=== PATIENT | female | born 1995 | race Caucasian/White ===

== ENCOUNTER 2023-03-08 14:36 | Inpatient (IN) | payer MEDICAID ==
[2023-03-08] MEDS: Morphine 2 MG/ML SYRINGE IVPUSH ONE ×2 (15:15→21:59)
[2023-03-08] MEDS: Acetaminophen 500 MG Tab PO ONE (15:15)
[2023-03-08] MEDS: Acetaminophen 500 MG Tab ONE (15:18)
[2023-03-08] MEDS: Sodium Chloride 0.9% 10 ML Syringe FLUSH PRN (15:19)
[2023-03-08] MEDS: Morphine 2 MG/ML SYRINGE ONE (15:19)
[2023-03-08 15:35] LABS: BASE EXCESS ARTERIAL -1.3 mm/L; BICARBONATE,ARTERIAL 19.5 mmol/L (22.0-26.0); CARBOXYHEMOGLOBIN 3.1 % (0.0-1.6); METHEMOGLOBIN 0.8 %; O2 SATURATION ARTERIAL 95.6 % (95.0-98.0); OXYHEMOGLOBIN 91.9 %; PCO2 ARTERIAL 24.5 mmHg (35.0-42.0); PO2 ARTERIAL 70.2 mmHg (75.0-100.0); TOTAL HEMOGLOBIN 15.8 g/dL (12.0-16.0)
[2023-03-08 15:40] LABS: BASOPHILS PERCENT AUTO 0.1 % (0.1-1.3); EOSINOPHILS ABSOLUTE AUTO 0.04 K/uL (0.00-0.40); EOSINOPHILS PERCENT AUTO 0.3 % (0.0-5.4); HEMATOCRIT 46.6 % (34.3-46.0); HEMOGLOBIN 15.7 g/dL (11.2-15.5); IMMATURE GRAN ABSOLUTE AUTO 0.05 K/uL (0.00-0.23); IMMATURE GRAN PERCENT AUTO 0.3 % (0.0-0.7); LYMPHOCYTES ABSOLUTE AUTO 1.56 K/uL (0.8-3.3); MEAN CORPUSCULAR HEMOGLOBIN 28.5 pg (31.6-35.5); MEAN CORPUSCULAR HGB CONC 33.7 g/dL (31.6-35.5); MEAN CORPUSCULAR VOLUME 84.7 fL (81.4-99.0); MONOCYTES ABSOLUTE AUTO 0.85 K/uL (0.20-0.90); MONOCYTES PERCENT AUTO 5.4 % (3.3-12.6); NEUTROPHILS ABSOLUTE AUTO 13.09 K/uL (1.0-7.6); NEUTROPHILS PERCENT AUTO 83.9 % (40.0-78.1); PLATELET COUNT,PLT 233 K/uL (130-375); WHITE BLOOD CELL COUNT,WBC 15.6 K/uL (3.2-11.0)
[2023-03-08 15:48] LABS: BASOPHILS ABSOLUTE AUTO 0.02 K/uL (0.00-0.10)
[2023-03-08 16:02] LABS: INR 1.2; PROTHROMBIN TIME 11.6 sec (9.2-10.6); PTT,PARTIAL THROMBOPLSTIN TIME 26.6 sec (21.8-27.3)
[2023-03-08 16:22] LABS: BLOOD UREA NITROGEN,BUN 13 mg/dL (7-18); CALCIUM 8.8 mg/dL (8.5-10.1); CARBON DIOXIDE,CO2 22 mmol/L (21-32); CHLORIDE,CL 98 mmol/L (100-108); CREATININE 0.7 mg/dL (0.6-1.0); EST CRCL DRUG DOSING (CG) 85.68 mL/min; ESTIMATED GFR 121 mL/min (>60); GLUCOSE RANDOM 112 mg/dL (74-106); MAGNESIUM 1.7 mg/dL (1.8-2.4); PHOSPHORUS 2.2 mg/dL (2.5-4.9); POTASSIUM,K 3.1 mmol/L (3.6-5.2); PRO B-TYPE NATRIUR PEPT,BNPPRO 31 pg/mL (5-125); SODIUM,NA 135 mmol/L (140-148)
[2023-03-08 16:23] LABS: ANION GAP 18.1 mmol/L (5.0-14.0); TROPONIN I HIGH SENSITIVITY < 4.0 pg/mL (<=60.3)
[2023-03-08] MEDS: Sodium Chloride 0.9% 1,000 ML IV ONE (17:16)
[2023-03-08] MEDS: cefTRIAXone 1 GM in Sodium Chloride 0.9% 50 ML IV ONE (17:18)
[2023-03-08 17:36] LABS: CORONAVIRUS COVID-19 NAA NEGATIVE (NEGATIVE); INFLUENZA A NAA NEGATIVE (NEGATIVE); INFLUENZA B NAA NEGATIVE (NEGATIVE); RESPIRATORY SYNCYTIAL VIR NAA NEGATIVE (NEGATIVE)
[2023-03-08] MEDS ORDERED: Sodium Chloride 0.9% 10 ML Syringe FLUSH PRN (17:50)
[2023-03-08] MEDS: Sodium Chloride 0.9% 100 ML IV SCH (18:03)
[2023-03-08] MEDS: Iopamidol 755 Mg/ML 100 ML Bottle IV SCH (18:03)
[2023-03-08] MEDS: Azithromycin 500 MG in Sodium Chloride 0.9% 250 ML IV ONE (18:25)
[2023-03-08 19:14] LABS: APPEARANCE,URINE SLIGHTLY CLOUDY (CLEAR); BILIRUBIN,URINE NEGATIVE (NEGATIVE); COLOR,URINE YELLOW (YELLOW); GLUCOSE,URINE NEGATIVE (NEGATIVE); KETONES,URINE 40 mg/dL (NEGATIVE); LEUKOCYTE ESTERASE,URINE NEGATIVE (NEGATIVE); NITRITE,URINE NEGATIVE (NEGATIVE); OCCULT BLOOD,URINE NEGATIVE (NEGATIVE); PROTEIN,URINE 30 mg/dL (NEGATIVE); UROBILINOGEN,URINE 0.2 EU/dL (0.2-1.0)
[2023-03-08 19:18] LABS: AMPHETAMINES SCREEN, URINE NEGATIVE (NEGATIVE); METHAMPHETAMINES SCREEN, URINE NEGATIVE (NEGATIVE)
[2023-03-08 19:19] LABS: BARBITURATE SCREEN,URINE NEGATIVE (NEGATIVE); BENZODIAZEPINES SCREEN,URINE NEGATIVE (NEGATIVE); METHADONE SCREEN, URINE NEGATIVE (NEGATIVE); OXYCODONE SCREEN,URINE NEGATIVE (NEGATIVE); PROPOXYPHENE SCREEN,URINE NEGATIVE (NEGATIVE); THC SCREEN,URINE 50 NG/ML PRESUMPTIVE POSITIVE (NEGATIVE)
[2023-03-08 19:20] LABS: AMORPHOUS SEDIMENT,URINE NOT SEEN; BACTERIA,URINE FEW; EPITHELIAL CELLS,URINE FEW; MUCUS,URINE RARE; RBC,URINE 0-5 (0-5); WBC,URINE 0-5 (0-5)
[2023-03-08] MEDS ORDERED: Sennosides/Docusate Sodium 50-8.6 MG Tab PO PRN (19:24)
[2023-03-08] MEDS ORDERED: Ondansetron 4 MG/2 ML SDV IV PRN (19:24)
[2023-03-08] MEDS ORDERED: LORazepam 2 MG/ML SDV IVPUSH PRN (19:24)
[2023-03-08] MEDS ORDERED: Acetaminophen 325 MG Tab PO PRN (19:24)
[2023-03-08] MEDS ORDERED: Magnesium Hydroxide 400 MG/5 ML Susp 30 ML Cup PO PRN (19:24)
[2023-03-08] MEDS: Sodium Chloride 0.9% 1,000 ML IV SCH (19:45)
[2023-03-08] MEDS: Nicotine 14 MG/24 Hr Patch TRDERM SCH (20:25)
[2023-03-08] MEDS: Magnesium Sulfate/Water 2 GM in Premix Bag 1 BAG IV ONE (20:56)
[2023-03-08] MEDS: guaiFENesin 600 MG Tab.ER PO SCH (20:58)
[2023-03-08] MEDS: Potassium Chloride 20 MEQ Tab.ER PO SCH (20:58)
[2023-03-09] MEDS: oxyCODONE 5 MG Tab PO PRN (04:54)
[2023-03-09 05:42] LABS: HEMATOCRIT 38.5 % (34.3-46.0); HEMOGLOBIN 12.7 g/dL (11.2-15.5); MEAN CORPUSCULAR HEMOGLOBIN 28.7 pg (31.6-35.5); MEAN CORPUSCULAR VOLUME 86.9 fL (81.4-99.0); RED BLOOD CELL COUNT 4.43 M/uL (3.77-5.24)
[2023-03-09 06:18] LABS: ALANINE AMINOTRANSFERASE,ALT 33 U/L (12-78); ALBUMIN 2.8 g/dL (3.4-5.0); ALKALINE PHOSPHATASE 60 U/L (46-116); ASPARTATE AMNIOTRANSFERASE,AST 33 U/L (15-37); BILIRUBIN TOTAL 0.5 mg/dL (0.2-1.0); BLOOD UREA NITROGEN,BUN 10 mg/dL (7-18); C-REACTIVE PROTEIN 9.59 mg/dL (<0.50); CALCIUM 7.5 mg/dL (8.5-10.1); CARBON DIOXIDE,CO2 23 mmol/L (21-32); CHLORIDE,CL 104 mmol/L (100-108); CREATININE 0.5 mg/dL (0.6-1.0); EST CRCL DRUG DOSING (CG) 112.51 mL/min; ESTIMATED GFR 131 mL/min (>60); GLUCOSE RANDOM 84 mg/dL (74-106); MAGNESIUM 2.2 mg/dL (1.8-2.4); POTASSIUM,K 3.9 mmol/L (3.6-5.2); PROTEIN TOTAL,TP 6.1 g/dL (6.4-8.2); SODIUM,NA 138 mmol/L (140-148)
[2023-03-09 06:20] LABS: A/G RATIO 0.9 (1.2-2.2); ANION GAP 14.9 mmol/L (5.0-14.0)
[2023-03-09] MEDS: methylPREDNISolone Sodium Succinate 40 MG/1 ML SDV IVPUSH SCH (08:08)
[2023-03-09] MEDS: Albuterol 0.083% 2.5 MG/3 ML Neb Soln NEB PRN (08:40)
[2023-03-09] MEDS: cefTRIAXone 2 GM in Sodium Chloride 0.9% 50 ML IV SCH (09:41)
[2023-03-09] MEDS: Azithromycin 500 MG in Sodium Chloride 0.9% 250 ML IV SCH (10:57)
[2023-03-09] MEDS: Ibuprofen 600 MG Tab PO PRN (15:18)
[2023-03-10 06:02] LABS: HEMATOCRIT 38.1 % (34.3-46.0); HEMOGLOBIN 12.5 g/dL (11.2-15.5); MEAN CORPUSCULAR HEMOGLOBIN 28.7 pg (31.6-35.5); MEAN CORPUSCULAR HGB CONC 32.8 g/dL (31.6-35.5); MEAN CORPUSCULAR VOLUME 87.6 fL (81.4-99.0); RED BLOOD CELL COUNT 4.35 M/uL (3.77-5.24); WHITE BLOOD CELL COUNT,WBC 7.6 K/uL (3.2-11.0)
[2023-03-10 06:27] LABS: A/G RATIO 0.8 (1.2-2.2); ALANINE AMINOTRANSFERASE,ALT 594 U/L (12-78); ALBUMIN 2.7 g/dL (3.4-5.0); ALKALINE PHOSPHATASE 80 U/L (46-116); ASPARTATE AMNIOTRANSFERASE,AST 418 U/L (15-37); BILIRUBIN TOTAL 0.3 mg/dL (0.2-1.0); BLOOD UREA NITROGEN,BUN 12 mg/dL (7-18); CARBON DIOXIDE,CO2 22 mmol/L (21-32); CHLORIDE,CL 107 mmol/L (100-108); CREATININE 0.5 mg/dL (0.6-1.0); EST CRCL DRUG DOSING (CG) 112.51 mL/min; ESTIMATED GFR 131 mL/min (>60); GLUCOSE RANDOM 96 mg/dL (74-106); MAGNESIUM 1.8 mg/dL (1.8-2.4); POTASSIUM,K 4.4 mmol/L (3.6-5.2); SODIUM,NA 138 mmol/L (140-148)
[2023-03-10 06:28] LABS: ANION GAP 13.4 mmol/L (5.0-14.0)
[2023-03-10] MEDS: Ondansetron 4 MG Tab.DIS PO PRN (08:20)
[2023-03-10] MEDS ORDERED: LORazepam 0.5 MG Tab PO PRN (10:47)
[2023-03-10] MEDS ORDERED: Cefdinir 300 MG Cap PO SCH (21:00)
[2023-03-11] MEDS ORDERED: predniSONE 20 MG Tab PO SCH (08:00)
== END 2023-03-10 12:32 | disposition home or self-care (01) | DRG 871 ==
LOC: JP.ED 14:36 → JP.MS 17:34
PROVIDERS: ADMIT Hospitalist; ATTEND Hospitalist
PROC: 4A033R1 Measurement of Arterial Saturation, Peripheral, Percutaneous Approach (ICD-10-PCS; principal; 2023-03-08)
PROC: 3E03329 Introduction of Other Anti-infective into Peripheral Vein, Percutaneous Approach (ICD-10-PCS; 2023-03-08)
DX: A41.9 Sepsis, unspecified organism (principal); J18.9 Pneumonia, unspecified organism; J96.01 Acute respiratory failure with hypoxia; E87.1 Hypo-osmolality and hyponatremia; J90 Pleural effusion, not elsewhere classified; R65.20 Severe sepsis without septic shock; F17.210 Nicotine dependence, cigarettes, uncomplicated; E87.6 Hypokalemia; E83.42 Hypomagnesemia; Z79.51 Long term (current) use of inhaled steroids; Z79.899 Other long term (current) drug therapy; Z11.52 Encounter for screening for COVID-19; Z79.2 Long term (current) use of antibiotics; Z98.891 History of uterine scar from previous surgery
CPT/HCPCS: 0241U; 36415; 36600; 71045; 71045-26; 71046; 71046-26; 71275; 80048; 80053; 80305-QW; 81001; 82803; 83605; 83735; 83880; 84100; 84484; 85025; 85027; 85610; 85730; 86140; 87040; 87070; 87205; 93005; 94640; 94667; 96365; 96375; 99223; 99232; 99239; 99285-25; A9270-GY; J0456; J0696; J2270; J2920; J3475; J3490; J7030; J7050; Q0162; Q9967

== ENCOUNTER 2023-08-06 14:35 | Emergency (ER) | payer MEDICAID ==
[2023-08-06 16:55] LABS: BASOPHILS ABSOLUTE AUTO 0.03 K/uL (0.00-0.10); BASOPHILS PERCENT AUTO 0.2 % (0.1-1.3); EOSINOPHILS ABSOLUTE AUTO 0.12 K/uL (0.00-0.40); EOSINOPHILS PERCENT AUTO 0.9 % (0.0-5.4); HEMATOCRIT 40.5 % (34.3-46.0); IMMATURE GRAN ABSOLUTE AUTO 0.03 K/uL (0.00-0.23); IMMATURE GRAN PERCENT AUTO 0.2 % (0.0-0.7); LYMPHOCYTES ABSOLUTE AUTO 1.37 K/uL (0.8-3.3); LYMPHOCYTES PERCENT AUTO 9.9 % (11.4-47.7); MEAN CORPUSCULAR HEMOGLOBIN 29.9 pg (31.6-35.5); MEAN CORPUSCULAR HGB CONC 34.6 g/dL (31.6-35.5); MEAN CORPUSCULAR VOLUME 86.5 fL (81.4-99.0); MONOCYTES ABSOLUTE AUTO 0.85 K/uL (0.20-0.90); MONOCYTES PERCENT AUTO 6.2 % (3.3-12.6); NEUTROPHILS ABSOLUTE AUTO 11.38 K/uL (1.0-7.6); NEUTROPHILS PERCENT AUTO 82.6 % (40.0-78.1); PLATELET COUNT,PLT 216 K/uL (130-375); RED BLOOD CELL COUNT 4.68 M/uL (3.77-5.24); WHITE BLOOD CELL COUNT,WBC 13.8 K/uL (3.2-11.0)
[2023-08-06 16:56] LABS: BASE EXCESS VENOUS 1.7 mm/L; BICARBONATE,VENOUS 25.2 mmol/L; CARBOXYHEMOGLOBIN 3.3 % (0.0-1.6); METHEMOGLOBIN 0.7 %; O2 SATURATION VENOUS 46.4; OXYHEMOGLOBIN 44.5 %; PCO2 VENOUS 37.9 mm/Hg; PH,VENOUS 7.438 (7.350-7.450); TOTAL HEMOGLOBIN 14.5 g/dL (12.0-16.0)
[2023-08-06 16:59] LABS: PO2 VENOUS 25.2 mm/Hg
[2023-08-06 17:16] LABS: CALCIUM 9.4 mg/dL (8.5-10.1); CREATININE 0.7 mg/dL (0.6-1.0); EST CRCL DRUG DOSING (CG) 80.68 mL/min; POTASSIUM,K 3.8 mmol/L (3.6-5.2)
[2023-08-06 17:22] LABS: ANION GAP 15.8 mmol/L (5.0-14.0); LACTIC ACID 1.3 mmol/L (0.4-2.0)
[2023-08-06] MEDS: Doxycycline 100 MG Cap PO ONE (17:38)
[2023-08-06] MEDS: cefTRIAXone 2 GM in Sodium Chloride 0.9% 50 ML IV ONE (17:38)
[2023-08-06] MEDS ORDERED: Acetaminophen 325 MG Tab PO ONE (17:58)
[2023-08-06] MEDS: Ibuprofen 600 MG Tab PO ONE (18:35)
== END 2023-08-06 18:41 | disposition home or self-care (01) ==
LOC: JP.ED 14:35
DX: J18.9 Pneumonia, unspecified organism (principal)
CPT/HCPCS: 36415; 71046; 71046-26; 80048; 82803; 83605; 84145; 85025; 86140; 87040; 96365; 99283-25; 99284; A9270-GY; J0696; J3490; J7030